=== PATIENT | male | born 1965 | race African-American/Black ===

== ENCOUNTER 2017-11-10 16:03 | Inpatient (IN) | payer OTHER ==
--- NOTE | 2017-11-10 16:12 | PDOC ---
Rapid Medical Evaluation Time Seen by Provider: 11/10/17 16:06 Medical Evaluation: 11/10/17 16:06 The patient presents with a chief complaint of: Tore R quad muscle at work on 11/04/17. Pt. states he is to have surgery tomorrow on the leg. by his orthopedic Ortho: Dr. Yoan Sung I have performed a brief in-person evaluation of this patient; Pertinent physical exam findings: r leg in knee immobilizer I have ordered the following: Pre-op labs CBC, CMP, Pt/INR, Type and Screen, EKG, CXR The patient will proceed to the ED for further evaluation.
[2017-11-10 16:37] LABS: BASO % 1.1 % (0-2.0); EOS % 2.2 % (0-4.5); HEMATOCRIT 40.6 % (35.4-49); HEMOGLOBIN 13.3 GM/dL (11.7-16.9); LYMPH % 42.6 % (8-40); MCH 27.9 pg (25.7-33.7); MCHC 32.6 g/dl (32.0-35.9); MEAN CELL VOLUME 85.5 fl (80-96); MEAN PLT VOLUME 8.2 fl (7.5-11.1); MONO % 14.6 % (3.8-10.2); NEUT % 39.5 % (42.8-82.8); PLATELET COUNT 303 K/MM3 (134-434); RBC 4.75 M/mm3 (4.00-5.60); RDW 14.7 % (11.9-15.9); WHITE BLOOD COUNT 7.3 K/mm3 (4.0-10.0)
[2017-11-10 16:49] LABS: INR 1.1 (0.82-1.09); PROTHROMBIN TIME (PATIENT) 12.4 SEC (9.98-11.88)
[2017-11-10 16:58] LABS: ALBUMIN 3.8 g/dl (3.4-5.0); ANION GAP 5 (8-16); BILIRUBIN,TOTAL 0.4 mg/dL (0.2-1.0); BLOOD UREA NITROGEN 18 mg/dL (7-18); CALCIUM 9.2 mg/dL (8.5-10.1); CHLORIDE 107 mmol/L (98-107); CO2 28 mmol/L (21-32); CREATININE 0.9 mg/dL (0.7-1.3); GLUCOSE,RANDOM 84 mg/dL (74-106); POTASSIUM 4.2 mmol/L (3.5-5.1); SGOT/AST 21 U/L (15-37); SGPT/ALT 47 U/L (12-78); SODIUM 140 mmol/L (136-145)
--- NOTE | 2017-11-10 16:58 | PDOC ---
History of Present Illness - General Chief Complaint: Pain Stated Complaint: ADMIT (PCP SENT) Needs RT Leg sx tomorrow Time Seen by Provider: 11/10/17 16:06 History Source: Patient Exam Limitations: No Limitations - History of Present Illness Initial Comments: 11/10/17 17:27 Pt. is a 51 y/o male with past medical history of bilateral patellar tendon rupture, biceps tendon rupture, HTN, boarderline diabetic not on meds, presents to the ED today stating that he is having surgery tomorrow for his R quadriceps tendon rupture and was told by his orthopedic surgeon to come to the ED for admission. Pt. states that he was dragging a metal beam at work, when he planted his leg, twisted and felt a pop on 11/04/16. Approximately 1 month prior to the injury, pt states he took ciprofloxacin. Denies recent illness, cough, shortness of breath, fevers, chills, chest pain, nausea, vomiting, diarrhea, frequency, urgency, hematuria. Past History - Travel Traveled outside of the country in the last 30 days: No Close contact w/someone who was outside of country & ill: No - Past Medical History Allergies/Adverse Reactions: Allergies Allergy/AdvReac Type Severity Reaction Status Date / Time Penicillins Allergy Verified 11/10/17 16:12 COPD: No Diabetes: Yes (no on meds) HTN: Yes Other medical history: obesity - Suicide/Smoking/Psychosocial Hx Smoking History: Never smoked Information on smoking cessation initiated: No Hx Alcohol Use: No Drug/Substance Use Hx: No Substance Use Type: None Review of Systems - Review of Systems Able to Perform ROS?: Yes Comments:: 11/10/17 19:37 CONSTITUTIONAL: Absent: fever, chills, diaphoresis, generalized weakness, malaise, loss of appetite HEENT: Absent: rhinorrhea, nasal congestion, throat pain, throat swelling, difficulty swallowing, mouth swelling, ear pain, eye pain, visual Changes CARDIOVASCULAR: Absent: chest pain, loss of consciousness, palpitations, irregular heart rate, peripheral edema RESPIRATORY: Absent: cough, shortness of breath, dyspnea with exertion, orthopnea, wheezing, stridor, hemoptysis GASTROINTESTINAL: Absent: abdominal pain, abdominal distension, nausea, vomiting, diarrhea, constipation, melena, hematochezia GENITOURINARY: Absent: dysuria, frequency, urgency, hesitancy, hematuria, flank pain, genital pain MUSCULOSKELETAL: Present: R leg pain. Pt. wearing knee immobilizer. Absent: arthralgia, joint swelling SKIN: Absent: rash, itching, pallor HEMATOLOGIC/IMMUNOLOGIC: Absent: easy bleeding, easy bruising, lymphadenopathy, frequent infections ENDOCRINE: Absent: unexplained weight gain, unexplained weight loss, heat intolerance, cold intolerance NEUROLOGIC: Absent: headache, focal weakness or paresthesias, dizziness, unsteady gait, seizure, mental status changes, bladder or bowel incontinence PSYCHIATRIC: Absent: anxiety, depression, suicidal or homicidal ideation, hallucinations Is the patient limited Samoan proficient: No *Physical Exam - Vital Signs Last Vital Signs Temp Pulse Resp BP Pulse Ox 98.6 F 93 H 18 155/96 97 11/10/17 16:08 11/10/17 16:08 11/10/17 16:08 11/10/17 16:08 11/10/17 16:08 - Physical Exam Comments: 11/10/17 20:38 GENERAL: Well developed, well nourished. AAOx3. No acute distress breathing easily sitting in chair. HEENT: Normocephalic, atraumatic. PERRLA, EOMI. No conjunctival pallor. Sclera are non- icteric. Moist mucous membranes. Oropharynx is clear. NECK: Supple. Full ROM. No JVD. Carotid pulses 2+ and symmetric, without bruits. No thyromegaly. No lymphadenopathy. CARDIOVASCULAR: Regular rate and rhythm. No murmurs, rubs, or gallops. Distal pulses are 2+ and symmetric. PULMONARY: No evidence of respiratory distress. Lungs clear to auscultation bilaterally. No wheezing, rales or rhonchi. ABDOMINAL: Soft. Non-tender. Non-distended. No rebound or guarding. No organomegaly. Normoactive bowel sounds. MUSCULOSKELETAL R leg was not removed from knee immobilizer. TTP of the R quadriceps muscle Normal range of motion at all other joints. No bony deformities. No CVA tenderness. EXTREMITIES: No cyanosis. No clubbing. No edema. No calf tenderness. SKIN: Warm and dry. Normal capillary refill. No rashes. No jaundice. NEUROLOGICAL: Alert, awake, appropriate. Cranial nerves 2-12 intact. No deficits to light touch and temperature in face, upper extremities and lower extremities. No motor deficits in the in face, upper extremities and lower extremities. Normoreflexic in the upper and lower extremities. Normal speech. Toes are down- going bilaterally. Gait is normal without ataxia. PSYCHIATRIC: Cooperative. Good eye contact. Appropriate mood and affect. ED Treatment Course - LABORATORY CBC & Chemistry Diagram: 11/10/17 16:18 11/10/17 16:18 - RADIOLOGY Radiology Studies Ordered: Category Date Time Status CHEST PA & LAT [RAD] Stat Radiology 11/10/17 16:11 Ordered Medical Decision Making - Medical Decision Making 11/10/17 16:59 Pt. is a 51 y/o male with past medical history of bilateral patellar tendon rupture, biceps tendon rupture, HTN, boarderline diabetic not on meds, presents to the ED today for admission prior to his R quadriceps repair tomorrow. Will order pre-op labs, EKG, CXR. Spoke with Monica Francisco NP and discussed the case. Accepts pt. for admission. Ortho surgeon: Dr. Yoan Sung 1. CBC, CMP, PT/INR, Type and screen 2. EKG 3. CXR 4. Admit to [facility]. *DC/Admit/Observation/Transfer Diagnosis at time of Disposition: Quadriceps muscle rupture Qualifiers: Encounter type: initial encounter Laterality: right Qualified Code(s): S76.111A - Strain of right quadriceps muscle, fascia and tendon, initial encounter - Discharge Dispostion Condition at time of disposition: Stable Admit: Yes - Referrals - Patient Instructions - Post Discharge Activity
[2017-11-10 16:59] LABS: ALK PHOS 109 U/L (45-117)
[2017-11-10 17:11] LABS: URINE APPEARANCE CLEAR; URINE BILIRUBIN NEGATIVE (NEGATIVE); URINE BLOOD NEGATIVE (NEGATIVE); URINE COLOR YELLOW; URINE GLUCOSE (UA) NEGATIVE (NEGATIVE); URINE KETONE NEGATIVE (NEGATIVE); URINE LEUK ESTERASE NEGATIVE (NEGATIVE); URINE NITRITE NEGATIVE (NEGATIVE); URINE PROTEIN NEGATIVE (NEGATIVE); URINE UROBILINOGEN 4.0 E.U/dl mg/dL (0.2-1.0)
--- NOTE | 2017-11-10 19:15 | PN ---
Teaching Attending Note Name of Resident: Lambert Llanos ATTENDING PHYSICIAN STATEMENT I saw and evaluated the patient. I reviewed the resident's note and discussed the case with the resident. I agree with the resident's findings and plan as documented. SUBJECTIVE: 51 M who tore his Right Quad Muscle at work on 11/04/17. States he past a medical hx. of HTN, ? MARY, but not on CPAP yet, and borderline DM. Pt. presents for surgical clearance. States a elevator cable fell and his right quad muscle tore. No chest pain, pressure, no shortness of breath. States he had been under genera; anesthesia twice and the second time, he had trouble with shortness of breath, post extubation. OBJECTIVE: Physical: VS: Vital Signs Period Temp Pulse Resp BP Sys/Patricio Pulse Ox Last 24 Hr 98.6 F 93 18 155/96 97 GEN: NAD, resting in bed, AA0X3 HEENT: NCAT, PERRL, Throat without erythema or exudates CARD: RRR S1, S2 RESP:CTAB ABD: BSx4, NTD to palpation EXT: - C/C/E CBCD WBC 7.3 K/mm3 (4.0-10.0) 11/10/17 16:18 RBC 4.75 M/mm3 (4.00-5.60) 11/10/17 16:18 Hgb 13.3 GM/dL (11.7-16.9) 11/10/17 16:18 Hct 40.6 % (35.4-49) 11/10/17 16:18 MCV 85.5 fl (80-96) 11/10/17 16:18 MCHC 32.6 g/dl (32.0-35.9) 11/10/17 16:18 RDW 14.7 % (11.9-15.9) 11/10/17 16:18 Plt Count 303 K/MM3 (134-434) 11/10/17 16:18 MPV 8.2 fl (7.5-11.1) 11/10/17 16:18 CMP Sodium 140 mmol/L (136-145) 11/10/17 16:18 Potassium 4.2 mmol/L (3.5-5.1) 11/10/17 16:18 Chloride 107 mmol/L (98-107) 11/10/17 16:18 Carbon Dioxide 28 mmol/L (21-32) 11/10/17 16:18 Anion Gap 5 (8-16) L 11/10/17 16:18 BUN 18 mg/dL (7-18) 11/10/17 16:18 Creatinine 0.9 mg/dL (0.7-1.3) 11/10/17 16:18 Creat Clearance w eGFR > 60 (>60) 11/10/17 16:18 Random Glucose 84 mg/dL (74-106) 11/10/17 16:18 Calcium 9.2 mg/dL (8.5-10.1) 11/10/17 16:18 Total Bilirubin 0.4 mg/dL (0.2-1.0) 11/10/17 16:18 AST 21 U/L (15-37) 11/10/17 16:18 ALT 47 U/L (12-78) 11/10/17 16:18 Alkaline Phosphatase 109 U/L (45-117) 11/10/17 16:18 Total Protein 8.0 g/dl (6.4-8.2) 11/10/17 16:18 Albumin 3.8 g/dl (3.4-5.0) 11/10/17 16:18 EKG: NSR 82 QtC 457 CXR: No acute process ASSESSMENT AND PLAN: 51 M who tore his Right Quad Muscle at work on 11/04/17. States he past a medical hx. of HTN, ? MARY, but not on CPAP yet, and borderline DM. Presents with pre-op eval for right quad muscle 1.) R. Quad Tear - EKG- Pending - Type & Screen - NPO - IVF 2.) MARY - Not on CPAP - Pulm. Eval 3.) HTN - Not on home meds - Pt. states usually controlled at home 4.) Dvt PPx - As per Ortho Place in Med-Sx
--- NOTE | 2017-11-10 19:39 | HP ---
CHIEF COMPLAINT: R quadriceps tendon rupture, surgical repair tomorrow PCP: Dr. Trye Tripp in [facility] HISTORY OF PRESENT ILLNESS: 51 yo man with pmh of BL patellar tendon rupture, triceps rupture, HTN and prediabetes who presents to ED for surgical clearance for surgical repair of R quadriceps tendon rupture tomorrow with Dr. Wilbert Hernandez. Pt states he fell at work while moving heavy equipment and noted a pain in his R knee/thigh. He was evaluated, found to have a R quadriceps tear and scheduled for surgery by Dr. Hernandez tomorrow. Pt w/ multiple tendon ruptures in the past, however no family hx of tendonopathy or connective tissue dz. Of note, patient states he had a "breathing reaction" to propane gas exposure at work two weeks ago, endorsing that he couldn't breathe, received "breathing treatment" at urgent care with resolution of symptoms and was sent home on zyrtec. Pt states he was recently taking ciprofloxacin for bronchitis before the R quadriceps rupture. He denies any MUNOZ/dizziness, fever/chills, SOB, cough, CP, N/V, abdominal pain, rashes or new neurologic symptoms. Pt recently diagnosed with MARY after receiving a sleep study at [facility], however has not used his CPAP machine due to his recent breathing issues. He states that he received spinal anesthesia x2 for his prior patellar tendon rupture. Pt received GA twice for bot triceps tendon repair surgeries and during second surgery states that he awoke during the procedure and couldn't breath. He endorses no hx of adverse reaction to anesthesia. Pt with no significant cardiac or pulmonary conditions other than previously noted. ER course was notable for: (1)BP 155/96 (2) (3) Recent Travel: None PAST MEDICAL HISTORY: Diabetes HTN Obesity BL patellar tendon rupture Biceps tendon rupture PAST SURGICAL HISTORY: BL patellar tendon repair BL triceps tendon repair Social History: Smoking: No Alcohol: No Drugs: No Works in construction Family History: Noncontributory Allergies Penicillins Allergy (Verified 11/10/17 16:12) HOME MEDICATIONS: REVIEW OF SYSTEMS CONSTITUTIONAL: Absent: fever, chills, diaphoresis, generalized weakness, malaise, loss of appetite, weight change HEENT: Absent: rhinorrhea, nasal congestion, throat pain, throat swelling, difficulty swallowing, mouth swelling, ear pain, eye pain, visual changes CARDIOVASCULAR: Absent: chest pain, syncope, palpitations, irregular heart rate, lightheadedness , peripheral edema RESPIRATORY: Absent: cough, shortness of breath, dyspnea with exertion, orthopnea, wheezing, stridor, hemoptysis GASTROINTESTINAL: Absent: abdominal pain, abdominal distension, nausea, vomiting, diarrhea, constipation, melena, hematochezia GENITOURINARY: Absent: dysuria, frequency, urgency, hesitancy, hematuria, flank pain, genital pain MUSCULOSKELETAL: R quad tendon rupture, arthralgia, Absent: myalgia, joint swelling, back pain, neck pain SKIN: Absent: rash, itching, pallor HEMATOLOGIC/IMMUNOLOGIC: Absent: easy bleeding, easy bruising, lymphadenopathy, frequent infections ENDOCRINE: Absent: unexplained weight gain, unexplained weight loss, heat intolerance, cold intolerance NEUROLOGIC: Absent: headache, focal weakness or paresthesias, dizziness, unsteady gait, seizure, mental status changes, bladder or bowel incontinence PHYSICAL EXAMINATION Vital Signs - 24 hr 11/10/17 16:08 Temperature 98.6 F Pulse Rate 93 H Respiratory 18 Rate Blood Pressure 155/96 O2 Sat by Pulse 97 Oximetry (%) GENERAL: Awake, alert, and fully oriented, in no acute distress. HEAD: Normal with no signs of trauma. EYES: Pupils equal, round and reactive to light, extraocular movements intact, sclera anicteric, conjunctiva clear. L lateral deviation of L eye on forward fixation. No lid lag. EARS, NOSE, THROAT: Ears normal, nares patent, oropharynx clear without exudates. Moist mucous membranes. NECK: Normal range of motion, supple without lymphadenopathy, JVD, or masses. Peritracheal adiposity noted. LUNGS: Breath sounds equal, clear to auscultation bilaterally. No wheezes, and no crackles. No accessory muscle use. HEART: Regular rate and rhythm, normal S1 and S2 without murmur, rub or gallop. ABDOMEN: Protuberant. Soft, nontender, not distended, normoactive bowel sounds, no guarding, no rebound, no masses. No hepatomegaly or splenomegaly. MUSCULOSKELETAL: Limited ROM in R knee; external fixator in place. Mild tenderness to palpation in R knee. Normal range of motion at all joints. No bony deformities or tenderness. No CVA tenderness. UPPER EXTREMITIES: 2+ pulses, warm, well-perfused. No cyanosis. No clubbing. No peripheral edema. LOWER EXTREMITIES: 2+ DP, PT pulses BL, warm, well-perfused. No calf tenderness. No peripheral edema. NEUROLOGICAL: Cranial nerves II-XII intact. Normal speech. Gait not evaluated. 5/5 strength in all extremities grossly. Normal sensation to light touch in all extremities. PSYCHIATRIC: Cooperative. Good eye contact. Appropriate mood and affect. SKIN: Warm, dry, normal turgor, no rashes or lesions noted, normal capillary refill. Laboratory Results - last 24 hr CBC, BMP 11/10/17 16:18 11/10/17 16:18 11/10/17 11/10/17 11/10/17 16:15 16:18 16:18 WBC 7.3 RBC 4.75 Hgb 13.3 Hct 40.6 MCV 85.5 MCH 27.9 MCHC 32.6 RDW 14.7 Plt Count 303 MPV 8.2 Neutrophils % 39.5 L Lymphocytes % 42.6 H Monocytes % 14.6 H Eosinophils % 2.2 Basophils % 1.1 PT with INR 12.40 H INR 1.10 Sodium Potassium Chloride Carbon Dioxide Anion Gap BUN Creatinine Creat Clearance w eGFR Random Glucose Calcium Total Bilirubin AST ALT Alkaline Phosphatase Total Protein Albumin Urine Color Yellow Urine Appearance Clear Urine pH 5.0 Ur Specific [place] 1.025 Urine Protein Negative Urine Glucose (UA) Negative Urine Ketones Negative Urine Blood Negative Urine Nitrite Negative Urine Bilirubin Negative Urine Urobilinogen 4.0 e.u/dl Ur Leukocyte Esterase Negative Blood Type Antibody Screen 11/10/17 11/10/17 16:18 16:18 WBC RBC Hgb Hct MCV MCH MCHC RDW Plt Count MPV Neutrophils % Lymphocytes % Monocytes % Eosinophils % Basophils % PT with INR INR Sodium 140 Potassium 4.2 Chloride 107 Carbon Dioxide 28 Anion Gap 5 L BUN 18 Creatinine 0.9 Creat Clearance w eGFR > 60 Random Glucose 84 Calcium 9.2 Total Bilirubin 0.4 AST 21 ALT 47 Alkaline Phosphatase 109 Total Protein 8.0 Albumin 3.8 Urine Color Urine Appearance Urine pH Ur Specific [place] Urine Protein Urine Glucose (UA) Urine Ketones Urine Blood Urine Nitrite Urine Bilirubin Urine Urobilinogen Ur Leukocyte Esterase Blood Type B POSITIVE Antibody Screen Negative No micro CXR: No acute pathology noted. Prominent pulmonary arteries. No consolidations, PNA or pneumos. EKG: NSR, QTC 457, No ST changes, NAD ASSESSMENT/PLAN: 51 yo man with pmh of BL patellar tendon rupture, triceps rupture, HTN and pre- diabetes who presents to ED for surgical clearance for surgical repair of R quadriceps tendon rupture tomorrow with Dr. Wilbert Hernandez. #R quadriceps tendon rupture - Pt with unlimited exercise tolerance, cardiac hx of HTN and pulmonary hx of MARY and no other chronic medical issues. Pt is low risk for this intermediate risk non-emergent surgery. - Scheduled for surgery tomorrow with Dr. Wilbert Hernandez - EKG pending - CXR with no acute pathology - Type and screen, coags, BMP, CBC - Pulm consult in AM due to prior hx of apnea during anesthesia #HTN - No home meds - Monitor for signs of HTN #MARY - Pulm consulted - CPAP at night - f/u with PCP, Dr Tripp - O2 tx PRN if needed, maintain sat >97% PPX Heparin SubQ FEN PO hydration Daily BMPs NPO after midnight Plan discussed with attending, Dr. Salina Llanos, PGY1 Visit type - Emergency Visit Emergency Visit: Yes ED Registration Date: 11/10/17 Care time: The patient presented to the Emergency Department on the above date and was hospitalized for further evaluation of their emergent condition. - New Patient This patient is new to me today: Yes Date on this admission: 11/11/17 - Critical Care Critical Care patient: No
--- NOTE | 2017-11-11 09:34 | EKG ---
Test Reason : Blood Pressure : / mmHG Vent. Rate : 082 BPM Atrial Rate : 082 BPM P-R Int : 140 ms QRS Dur : 100 ms QT Int : 392 ms P-R-T Axes : 051 -06 020 degrees QTc Int : 457 ms NORMAL SINUS RHYTHM NORMAL ECG NO PREVIOUS ECGS AVAILABLE Confirmed by PAULO ROTHMAN, DESTINEE ([id number]) on 11/11/2017 9:33:47 AM Referred By: Confirmed By:DESTINEE BATES MD
[2017-11-11] MEDS ORDERED: MIDAZOLAM HCL 2 MG/2 ML SINGLE DOSE VIAL ONE ×3 (16:34→18:35)
[2017-11-11] MEDS ORDERED: BUPIVACAINE HCL/PF 0.75% 10 ML VIAL ONE (16:36)
[2017-11-11] MEDS ORDERED: BUPIVACAINE HCL/PF 0.25% (2.5MG/ML) 10 ML VIAL ONE (16:36)
[2017-11-11] MEDS ORDERED: ONDANSETRON 4 MG/2 ML VIAL IVPUSH PRN ×2 (17:51→21:05)
[2017-11-11] MEDS ORDERED: PROMETHAZINE HCL 25 MG/1 ML VIAL IVPUSH PRN (17:51)
[2017-11-11] MEDS ORDERED: CLINDAMYCIN PHOSPHATE 900 MG/6 ML VIAL IVPB ONE (18:05)
[2017-11-11] MEDS ORDERED: VANCOMYCIN 1,000 MG VIAL (RESTRICTED TO ID ONLY) IVPB ONE (18:05)
[2017-11-11] MEDS ORDERED: VANCOMYCIN 1,000 MG VIAL (RESTRICTED TO ID ONLY) ONE (18:06)
[2017-11-11] MEDS ORDERED: CLINDAMYCIN PHOSPHATE 600 MG/4 ML VIAL ONE (18:11)
--- NOTE | 2017-11-11 21:01 | PN ---
Progress Note (short form) - Note Progress Note: 51M p/w sub-acute, traumatic right quadriceps tendon rupture. Pt. is s/p previous right patellar ligament rupture, left quadriceps tendon rupture, and bilateral triceps tendon ruptures. He was on fluoroquinolone antibiotics within the last 3 weeks. Given his history of multiple tendon tears, I am concerned about an underlying connective tissue disorder and recommend that he see a mayonnaise mixer for thorough workup upon outpatient follow-up. -Pt. seen & examined in pre-op holding area. -H&P reviewed. -Risks, benefits, and alternatives of non-surgical VS surgical intervention discussed with and understood by patient and his . -Pt. wishes to pursue a surgical solution to his right quadriceps tendon tear. -Consent obtained. -Right lower extremity marked. -All questions were answered. -NPO, IVF, kg-op abx. -Plan for open surgical repair of right quadriceps tendon.
--- NOTE | 2017-11-11 21:04 | OP ---
Operative Note - Note: Operative Date: 11/11/17 Pre-Operative Diagnosis: Traumatic right quadriceps tendon tear. Operation: 1. Open right quadriceps repair. 2. Application right long leg cylinder cast Findings: Macerated quadriceps mechanism. Surgeon: Yoan Rabago [employer] Specialist: Wilbert Rabago Anesthesiologist/TRANSITION PROGRAM MANAGER: Dusty Miguel Anesthesia: Spinal Estimated Blood Loss (mls): 25 Operative Report Dictated: Yes
[2017-11-11] MEDS ORDERED: MAGNESIUM HYDROX 2400MG/30ML ORAL SUSPENSION 30 ML CUP PO PRN (21:05)
[2017-11-11] MEDS ORDERED: MAG HYDROX/AL HYDROX/SIMETH 30 ML UNIT-DOSE CUP PO PRN (21:05)
--- NOTE | 2017-11-11 21:14 | PN ---
Progress Note (short form) - Note Progress Note: 51M s/p open right quadriceps tendon repair & application right lower extremity long leg cylinder cast POD #0. -Pain control: No NSAID's x 8 weeks. -DVT PPx: chemical (ASA 325 BID x 6 weeks) & mechanical (DOLORES's, SCD's LLE). -Rebecca-op antibiotics: Vancomycin 1g IV @ 7am 11/12/2016; Clindamycin 900mg IV q8h post-op x 2 doses. -Incentive spirometry. -PT/OT/Rehab, out of bed. -NWB RLE x 4 weeks. -Crutch training. -q4h NV checks post-op x 24 hrs. -Diet as tolerated. -f/u post-op trial of void. -Care per primary medical team. -Will follow. -Discharge planning: Plan for outpatient follow-up [facility] ([facility]) 11/26/2017 (pt. to call for appointment: [phone]).
[2017-11-11] MEDS ORDERED: ELECTROLYTE-148 SOLN 1,000 ML IV SCH (21:15)
[2017-11-11] MEDS ORDERED: ASPIRIN 325 MG ENTERIC COATED TABLET (FP) ONE (21:43)
--- NOTE | 2017-11-11 21:54 | PN ---
Teaching Attending Note Name of Resident: Lambert Llanos ATTENDING PHYSICIAN STATEMENT I saw and evaluated the patient. I reviewed the resident's note and discussed the case with the resident. I agree with the resident's findings and plan as documented. SUBJECTIVE: 51 M with MARY who is POD #0 for right quad repair and application of RLE leg cylinder, Pt. States pain is well controlled and does not want pain meds at this point. Denies any chest pain, pressure or shortness of breath. No fevers, chills or N/V/D. OBJECTIVE: Physical: VS: Vital Signs Period Temp Pulse Resp BP Sys/Patricio Pulse Ox Last 24 Hr 97.3 F-98.7 F 76-91 14-20 116-140/69-88 96-100 GEN: NAD, Resting in bed, AA0X3 HEENT: NCAT, PERRL, Throat without erythema or exudates CARD: RRR S1, S2 RESP: CTAB ABD:BSx4, NTD to palpation EXT: Pulses intact bilateral LE CBCD WBC 7.3 K/mm3 (4.0-10.0) 11/10/17 16:18 RBC 4.75 M/mm3 (4.00-5.60) 11/10/17 16:18 Hgb 13.3 GM/dL (11.7-16.9) 11/10/17 16:18 Hct 40.6 % (35.4-49) 11/10/17 16:18 MCV 85.5 fl (80-96) 11/10/17 16:18 MCHC 32.6 g/dl (32.0-35.9) 11/10/17 16:18 RDW 14.7 % (11.9-15.9) 11/10/17 16:18 Plt Count 303 K/MM3 (134-434) 11/10/17 16:18 MPV 8.2 fl (7.5-11.1) 11/10/17 16:18 CMP Sodium 140 mmol/L (136-145) 11/10/17 16:18 Potassium 4.2 mmol/L (3.5-5.1) 11/10/17 16:18 Chloride 107 mmol/L (98-107) 11/10/17 16:18 Carbon Dioxide 28 mmol/L (21-32) 11/10/17 16:18 Anion Gap 5 (8-16) L 11/10/17 16:18 BUN 18 mg/dL (7-18) 11/10/17 16:18 Creatinine 0.9 mg/dL (0.7-1.3) 11/10/17 16:18 Creat Clearance w eGFR > 60 (>60) 11/10/17 16:18 Random Glucose 84 mg/dL (74-106) 11/10/17 16:18 Calcium 9.2 mg/dL (8.5-10.1) 11/10/17 16:18 Total Bilirubin 0.4 mg/dL (0.2-1.0) 11/10/17 16:18 AST 21 U/L (15-37) 11/10/17 16:18 ALT 47 U/L (12-78) 11/10/17 16:18 Alkaline Phosphatase 109 U/L (45-117) 11/10/17 16:18 Total Protein 8.0 g/dl (6.4-8.2) 11/10/17 16:18 Albumin 3.8 g/dl (3.4-5.0) 11/10/17 16:18 ASSESSMENT AND PLAN: 51 M with MARY who is POD #0 for right quad repair and application of RLE leg cylinder 1.) R. Quad Repair with RLE Cylinder - Repeat CBC and CMP with [facility] in am - Resume diet - Incentive Spirometry - Clindamycin 900 mg IV q8h - PT/OT - Post op trial of void 2.) MARY - CPAP, if pt. willing at night 3.) Dvt Ppx - As per Ortho sx Rest as per resident note
[2017-11-11] MEDS: ASPIRIN 325 MG TABLET PO SCH (22:18)
[2017-11-11] MEDS: SENNOSIDES/DOCUSATE COMBO (SENNA PLUS) TABLET (UD) PO SCH (22:29)
--- NOTE | 2017-11-11 22:43 | PN ---
Physical Exam: SUBJECTIVE: Patient seen and examined by me this AM - Pt POD0 from R Quadricep tendon/muscle repair; Surgery with no complications - Pt with no complaints; No BM/flatus yet. Pt approved for PO feeds by surgical team; Denies SOB, cough, CP, palpitations, N/V, abdominal pain, numbness/ tingling in hands/feets, fevers/chills, MUNOZ/dizziness - Pt concerned about skilled nursing pain management, as oxycodone/percocet tend to give him constipation. Informed to bring this up with surgical team before discharge OBJECTIVE: Vital Signs Intake & Output 11/08/17 11/09/17 11/10/17 11/11/17 23:59 23:59 23:59 23:59 Intake Total 2900 Output Total 25 Balance 2875 Weight 127.006 kg Period Temp Pulse Resp BP Sys/Patricio Pulse Ox Last 24 Hr 97.8 F-98.7 F 77-88 14-20 122-140/69-82 96-100 GENERAL: Awake, alert, and fully oriented, in no acute distress. laying in bed HEAD: Normal with no signs of trauma. EYES: Pupils equal, round and reactive to light, extraocular movements intact, sclera anicteric, conjunctiva clear. L lateral deviation of L eye on forward fixation. No lid lag. EARS, NOSE, THROAT: Ears normal, nares patent, oropharynx clear without exudates. Moist mucous membranes. NECK: Normal range of motion, supple without lymphadenopathy, JVD, or masses. Peritracheal adiposity noted. LUNGS: Breath sounds equal, clear to auscultation bilaterally. No wheezes, and no crackles. No accessory muscle use. HEART: Regular rate and rhythm, normal S1 and S2 without murmur, rub or gallop. ABDOMEN: Protuberant. Soft, nontender, not distended, normoactive bowel sounds, no guarding, no rebound, no masses. No hepatomegaly or splenomegaly. MUSCULOSKELETAL: Normal range of motion at all other joints. No bony deformities or tenderness. No CVA tenderness. UPPER EXTREMITIES: 2+ pulses, warm, well-perfused. No cyanosis. No clubbing. No peripheral edema. LOWER EXTREMITIES: R leg immobilized in cast. 2+ DP, PT pulses BL. Preserved sensation to light touch BL in feet. No calf tenderness. No peripheral edema. NEUROLOGICAL: Cranial nerves II-XII intact. Normal speech. Gait not evaluated. 5/5 strength in all extremities grossly, except R leg due to cast. Normal sensation to light touch in all extremities. PSYCHIATRIC: Cooperative. Good eye contact. Appropriate mood and affect. SKIN: Warm, dry, normal turgor, no rashes or lesions noted, normal capillary refill. Active Medications Generic Name Dose Route Start Last Admin Trade Name Freq PRN Reason Stop Dose Admin Al Hydroxide/Mg Hydroxide 30 ml 11/11/17 21:05 Mylanta Oral Suspension - PO Q4H PRN DYSPEPSIA Aspirin 325 mg 11/11/17 22:00 11/11/17 22:18 Asa - PO Not Given BID MELANY Fentanyl 50 mcg 11/11/17 17:51 Sublimaze Injection - IVPUSH [id number] PRN PAIN-PACU ORDER X 4 DOSES ONLY Parenteral Electrolytes 1,000 mls @ 125 mls/hr 11/11/17 18:00 Plasma-Lyte 148 - IV ASDIR MELANY Parenteral Electrolytes 1,000 mls @ 125 mls/hr 11/11/17 21:15 Plasma-Lyte 148 - IV 11/12/17 06:00 ASDIR MELANY Vancomycin HCl 1 mg/ Dextrose 250 mls @ 166.667 mls/hr 11/12/17 07:00 IVPB 11/12/17 08:29 ONCE ONE Protocol Clindamycin Phosphate 900 mg in 50 mls @ 100 mls/hr 11/12/17 02:00 Cleocin 900 Mg Premix Ivpb - IVPB 11/12/17 10:29 Q8H-IV MELANY Ondansetron HCl 4 mg 11/11/17 17:51 Zofran Injection IVPUSH Q6H PRN NAUSEA AND/OR VOMITING Ondansetron HCl 4 mg 11/11/17 21:05 Zofran Injection IVPUSH Q6H PRN NAUSEA Oxycodone/Acetaminophen 1 combo 11/11/17 22:30 Percocet 5/325 - PO 11/12/17 22:29 Q6H MELANY Pantoprazole Sodium 40 mg 11/12/17 10:00 Protonix - PO DAILY MELANY Promethazine HCl 12.5 mg 11/11/17 17:51 Phenergan Injection - IVPUSH Q6H PRN NAUSEA-FOR RESCUE AFTER 15 MIN Senna/Docusate Sodium 1 tablet 11/11/17 22:00 11/11/17 22:29 Pericolace - PO 1 tablet BID MELANY Administration No micro CXR 11/10: No acute pathology noted. Prominent pulmonary arteries. No consolidations, PNA or pneumos. EKG 11/10: NSR, QTC 457, No ST changes, NAD ASSESSMENT/PLAN: 51 yo man with pmh of BL patellar tendon rupture, triceps rupture, HTN and pre- diabetes who presents to ED for surgical clearance for surgical repair of R quadriceps tendon rupture, now POD0, doing well w/ no complaints, afebrile and has not passed flatus/BM yet. Post-op management per surgical team. #R quadriceps tendon rupture - Pt PODO from surgical repair for R quad tendon/muscle rupture. - Post-op management per surgical team: -Pain control: No NSAID's x 8 weeks. -DVT PPx: chemical (ASA 325 BID x 6 weeks) & mechanical (DOLORES's, SCD's LLE). -Rebecca-op antibiotics: Vancomycin 1g IV @ 7am 11/12/2016; Clindamycin 900mg IV q8h post-op x 2 doses. -Incentive spirometry. -PT/OT/Rehab, out of bed. -NWB RLE x 4 weeks. -Crutch training. -q4h NV checks post-op x 24 hrs. -Diet as tolerated. -f/u post-op trial of void. - Ordered for one time dose of percocet for pain control #HTN - No home meds - Monitor for signs of HTN #MARY - Pulm consulted - CPAP at night - f/u with PCP, Dr Tripp - O2 tx PRN if needed, maintain sat >97% PPX SCDs per surgical team FEN PO hydration Daily BMPs Regular diet Plan discussed with attending, Dr. Salina Llanos, PGY1 Visit type - Emergency Visit Emergency Visit: Yes ED Registration Date: 11/10/17 Care time: The patient presented to the Emergency Department on the above date and was hospitalized for further evaluation of their emergent condition. - New Patient This patient is new to me today: No - Critical Care Critical Care patient: No
[2017-11-11] MEDS: oxyCODONE HCL 5 MG TABLET PO SCH ×4 (22:46→23:06)
[2017-11-11] MEDS: ACETAMINOPHEN 325 MG TABLET (FP) PO SCH ×2 (22:47→22:53)
[2017-11-12] MEDS: oxyCODONE HCL 5 MG TABLET PO SCH ×4 (00:05→17:11)
[2017-11-12] MEDS: ACETAMINOPHEN 325 MG TABLET (FP) PO SCH ×4 (00:07→17:12)
[2017-11-12] MEDS: CLINDAMYCIN 900 MG PREMIX IVPB 900 MG/50 ML BAG IVPB SCH ×2 (01:54→09:44)
[2017-11-12 04:39] VITALS: BMI 38.1
[2017-11-12] MEDS: ELECTROLYTE-148 SOLN 1,000 ML IV SCH (05:48)
[2017-11-12] MEDS ORDERED: VANCOMYCIN 1,000 MG in DEXTROSE 5%-WATER - 250 ML IVPB ONE (07:00)
[2017-11-12 07:48] LABS: HEMATOCRIT 37.2 % (35.4-49); MCH 27.6 pg (25.7-33.7); MCHC 32.2 g/dl (32.0-35.9); MEAN CELL VOLUME 85.6 fl (80-96); MEAN PLT VOLUME 8.1 fl (7.5-11.1); PLATELET COUNT 266 K/MM3 (134-434); RBC 4.35 M/mm3 (4.00-5.60); WHITE BLOOD COUNT 9.1 K/mm3 (4.0-10.0)
[2017-11-12 08:22] LABS: CHLORIDE 104 mmol/L (98-107); POTASSIUM 4.1 mmol/L (3.5-5.1); SODIUM 136 mmol/L (136-145)
[2017-11-12 08:35] LABS: ALBUMIN 3.1 g/dl (3.4-5.0); ALK PHOS 88 U/L (45-117); ANION GAP 8 (8-16); BILIRUBIN,TOTAL 0.6 mg/dL (0.2-1.0); BLOOD UREA NITROGEN 13 mg/dL (7-18); CALCIUM 7.4 mg/dL (8.5-10.1); CO2 24 mmol/L (21-32); CREATININE 0.7 mg/dL (0.7-1.3); GLUCOSE,RANDOM 126 mg/dL (74-106); SGOT/AST 16 U/L (15-37); SGPT/ALT 36 U/L (12-78); TOT PROT 6.3 g/dl (6.4-8.2)
[2017-11-12] MEDS: ASPIRIN 325 MG TABLET PO SCH ×2 (09:44→21:35)
[2017-11-12] MEDS: SENNOSIDES/DOCUSATE COMBO (SENNA PLUS) TABLET (UD) PO SCH ×2 (09:45→21:35)
[2017-11-12] MEDS: PANTOPRAZOLE 40 MG TABLET (FP) PO SCH (09:45)
--- NOTE | 2017-11-12 11:02 | OP ---
DATE OF OPERATION: 11/11/2017 SURGEON: Yoan Rabago MD PRINCIPAL ELECTRICAL ENGINEER: Wilbert Rabago MD PREOPERATIVE DIAGNOSIS: Traumatic right quadriceps tendon tear. POSTOPERATIVE DIAGNOSIS: Traumatic right quadriceps tendon tear. SURGICAL PROCEDURES: 1. Open surgical repair right quadriceps tendon tear. 2. Application of right long leg cylinder cast. ANESTHESIA: Spinal and regional. POSITION: Supine. INCISION: Midline. ESTIMATED BLOOD LOSS: 25 mL. INTRAVENOUS FLUID: See Anesthesia record. SPECIMENS: None. DRAINS: None. COMPLICATIONS: None. URINE OUTPUT: None. BACTERIOLOGY: None. TRANSFUSIONS: None. CLOSURE: Number 1 and 2-0 Vicryl, and 3-0 Biosyn. INDICATIONS: The patient is a 51-year-old gentleman who was seen in our outpatient orthopedic clinic, where he was diagnosed with a subacute traumatic rupture of his right quadriceps tendon. Of interest, the patient has been treated within the last 3 to 4 weeks with a fluoroquinolone antibiotic, which we know potentiates tendinopathy. Given the fact that he has a previous history of a right patellar ligament tear, a left quadriceps tendon tear, and bilateral triceps tendon tears , I am suspicious of an underlying connective tissue disorder. This may have been exacerbated by the recent taking of fluoroquinolone antibiotic. The patient was indicated for an open repair of his right quadriceps mechanism in order to promote satisfactory healing, to avoid the complications of delayed surgical intervention, and to overall provide him with the best chance of a successful outcome given this potentially disastrous injury. DESCRIPTION OF PROCEDURE: The patient was identified in the holding area by his arm band. A long discussion was held with the patient in the presence of his regarding the risks, benefits and alternatives of the above-named procedure. The risks include but are not limited to: Pain, bleeding, infection, damage to surrounding structures (including nerves, blood vessels, skin, ligaments, tendons and bone), wound complications, delayed healing, failure of hardware/implant/ reduction, need for further surgery, blood clots, myocardial infarction, pulmonary embolism , anesthesia complications, compartment syndrome, limb loss, loss of function, and . Benefits as mentioned above. Alternatives include no surgery. All questions were answered. The patient and his understood and agreed to the proceed. Informed consent was obtained, witnessed and verified. The patient's correct operative limb - that is the right lower extremity - was marked. The patient was taken to the operating room after being seen by the anesthesia and nursing staff. The patient was brought into the operating room, placed on the OR table and secured with the safety strap. Consent and the operative site were again verified with the patient, Anesthesia and nursing staff. Anesthesia was administered without complication. This included a regional block of his right lower extremity as well as a spinal anesthetic. IV vancomycin as well as clindamycin were administered. The patient has a self-suspected penicillin allergy, as his father had a penicillin allergy. He does not himself know if he is truly allergic to the medication, but he does not want to take a chance. The patient was positioned with all bony prominences well padded, and the tourniquet was placed proximally on the right thigh and set to 250 mmHg. The operative site was then prepped and draped in the standard sterile fashion. A time-out was again done. The right lower extremity was exsanguinated using an Esmarch. The tourniquet was inflated, and the case began. A standard anterior, midline incision was taken from the middle of the thigh down towards the tibial tubercle. Sharp dissection was carried through the skin and subcutaneous tissues down to the level of the extensor mechanism. A transverse traumatic rupture of the rectus femoris tendon as well as the vastus medialis obliquus muscle were immediately identified. Multiple complex ruptures of the vastus lateralis as well as the more proximal bellies of the rectus femoris, vastus intermedius muscle, and vastus lateralis muscle were also identified. The injury sites and entirety of the wound were copiously irrigated and debrided of any residual clot. Next, a number 2 FiberWire suture was sutured in Krackow stitch fashion into the intact proximal limb of the rectus femoris muscle and tendon. Next, two longitudinal drill holes were made extra-articularly through the patella. This was using a 2.0-mm drill bit. A Luis Alberto needle was utilized to retrieve the limbs of the FiberWire suture, which were then delivered through each of the drill holes. Numerous number 1 Vicryl sutures were laid so as to repair the identifiable defects throughout the quadriceps mechanism. Next, the knee was fully extended and the FiberWire sutures were tied over the inferior aspect of the patella. Next, all of the Vicryl sutures were tied in the best possible attempt we could make to reconstruct and reapproximate the quadriceps mechanism. Once again, the wound was copiously irrigated with normal saline solution. At this point, we felt the best possible reconstruction and repair of the quadriceps mechanism that we could achieve had been performed, and we proceeded with wound closure, with the knee again fully extended. The wounds were closed primarily using number 1 and 2-0 Vicryl sutures, as well as 3-0 Biosyn subcuticular stitch. Three proximal simple interrupted Monocryl stitches were delivered as well. A sterile compressive dressing was applied, and the tourniquet was released. After 5 minutes of allowing the limb to re-perfuse, a long-leg cylinder cast was applied to the right lower extremity so as to minimize the potential for knee flexion and compromise of our repair/reconstruction. The final tourniquet time was 116 minutes. The sponge and needle counts were correct at the end of the case. I, the attending surgeon, was present and scrubbed throughout the entire case. The patient was then transferred to a hospital bed and taken to the recovery room in stable condition, having tolerated the procedure well. MD AC [id number] MTDD
--- NOTE | 2017-11-12 18:44 | PN ---
Teaching Attending Note Name of Resident: Peace Orozco ATTENDING PHYSICIAN STATEMENT I saw and evaluated the patient. I reviewed the resident's note and discussed the case with the resident. I agree with the resident's findings and plan as documented. SUBJECTIVE: No fever or chills , pain in R thigh . no SOb or CP OBJECTIVE: NAD CV : RRR Lungs : CTAB Ext: R leg in cast. DP 2+ . 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 has intact sensation in R foot A/P : 51 y/o man with h/o multiple tendon ruptures who presented with R quad rupture 1- R quad rupture, s/p repair , POD 1 - No WB - pain control - maintain cast - received post op Abx - can't reach Dr. Rabago for further REcs and wound care - DVT px per surgical team - Rheum f/u as out pt 2- New diagnosis of Dm : A1c 7.1 - will start metformin as outpt dc planning when OK with surgery . refused rehab, did not do well with crutches
[2017-11-12] MEDS ORDERED: ACETAMINOPHEN 325 MG TABLET (FP) PO PRN (21:11)
[2017-11-12] MEDS ORDERED: oxyCODONE HCL 5 MG TABLET PO PRN (21:11)
[2017-11-12] MEDS ORDERED: CYCLOBENZAPRINE HCL 10 MG TABLET (FP) PO ONE (21:30)
[2017-11-12] MEDS: CYCLOBENZAPRINE HCL 10 MG TABLET (FP) PO SCH (21:34)
--- NOTE | 2017-11-12 21:58 | PN ---
Physical Exam: SUBJECTIVE: Patient seen and examined. No fever or chills. Pain well controlled. OBJECTIVE: Vital Signs Period Temp Pulse Resp BP Sys/Patricio Pulse Ox Last 24 Hr 97.3 F-100 F 76-108 14-20 101-140/69-88 98-100 GENERAL: nad, aaox3 EYES: sclera anicteric, conjunctiva clear ENT: oropharynx clear without exudates. mmm NECK: supple, no cervical LAD, no JVD LUNGS: CTAB HEART: rrr, normal S1/S2, no m/r/g ABDOMEN: Protuberant. Soft, ntnd, normoactive BS LOWER EXTREMITIES: R leg immobilized in cast. 2+ DP and PT B/L, sensation intact in feet, 5/5 dorsiflexion/plantarflexion Laboratory Results - last 24 hr 11/12/17 11/12/17 11/12/17 06:30 06:30 06:30 WBC 9.1 RBC 4.35 Hgb 12.0 Hct 37.2 MCV 85.6 MCH 27.6 MCHC 32.2 RDW 15.0 Plt Count 266 MPV 8.1 Sodium 136 Potassium 4.1 Chloride 104 Carbon Dioxide 24 Anion Gap 8 BUN 13 D Creatinine 0.7 D Creat Clearance w eGFR > 60 Random Glucose 126 H D Hemoglobin A1c % 7.1 H Calcium 7.4 L Total Bilirubin 0.6 D AST 16 D ALT 36 D Alkaline Phosphatase 88 Total Protein 6.3 L D Albumin 3.1 L Active Medications Generic Name Dose Route Start Last Admin Trade Name Freq PRN Reason Stop Dose Admin Acetaminophen 325 mg 11/12/17 21:11 Tylenol - PO Q6H PRN PAIN LEVEL 6-10 Al Hydroxide/Mg Hydroxide 30 ml 11/11/17 21:05 Mylanta Oral Suspension - PO Q4H PRN DYSPEPSIA Aspirin 325 mg 11/11/17 22:00 11/12/17 21:35 Asa - PO 325 mg BID MELANY Administration Cyclobenzaprine HCl 10 mg 11/12/17 22:00 11/12/17 21:34 Flexeril - PO 11/13/17 10:01 10 mg BID MELANY Administration Fentanyl 50 mcg 11/11/17 17:51 Sublimaze Injection - IVPUSH [id number] PRN PAIN-PACU ORDER X 4 DOSES ONLY Parenteral Electrolytes 1,000 mls @ 125 mls/hr 11/11/17 18:00 11/12/17 05:48 Plasma-Lyte 148 - IV 125 mls/hr ASDIR MELANY Administration Ondansetron HCl 4 mg 11/11/17 17:51 Zofran Injection IVPUSH Q6H PRN NAUSEA AND/OR VOMITING Ondansetron HCl 4 mg 11/11/17 21:05 Zofran Injection IVPUSH Q6H PRN NAUSEA Oxycodone HCl 5 mg 11/12/17 21:11 Roxicodone - PO Q6H PRN PAIN LEVEL 6-10 Pantoprazole Sodium 40 mg 11/12/17 10:00 11/12/17 09:45 Protonix - PO 40 mg DAILY MELANY Administration Promethazine HCl 12.5 mg 11/11/17 17:51 Phenergan Injection - IVPUSH Q6H PRN NAUSEA-FOR RESCUE AFTER 15 MIN Senna/Docusate Sodium 1 tablet 11/11/17 22:00 11/12/17 21:35 Pericolace - PO 1 tablet BID MELANY Administration ASSESSMENT/PLAN: 51yo man with PMH of BL patellar tendon rupture, triceps rupture, HTN and pre- diabetes who presents to ED for surgical clearance for surgical repair of R quadriceps tendon rupture, now POD1. #POD1 s/p R quadriceps tendon/muscle rupture -Called Dr. Rabago's office to discuss post-operative management and wound care; he will assess patient in the evening - Post-op management per surgical team: -Pain control: No NSAID's x 8 weeks. -DVT PPx: chemical (ASA 325 BID x 6 weeks) & mechanical (DOLORES's, SCD's LLE). -completed kg-op antibiotics (vancomycin 1g IV @ 7am 11/12/2016; Clindamycin 900mg IV q8h post-op x 2 doses) -Incentive spirometry. -PT/OT/Rehab, out of bed. -NWB RLE x 4 weeks. -Crutch training. -q4h NV checks post-op x 24 hrs. -Diet as tolerated. #HTN - No home meds - Monitor for signs of HTN #MARY - Pulm consulted - CPAP at night - f/u with PCP, Dr Trpip - O2 tx PRN if needed, maintain sat >97% #PPX DVT - ASA and scd's per surgical team #FEN: PO hydration / Daily BMPs / Regular diet #DISPO: continue m/s FULL code d/w Dr. Kahs Orozco MD PGY1 - Internal Medicine Visit type - Emergency Visit Emergency Visit: No - New Patient This patient is new to me today: No - Critical Care Critical Care patient: No
--- NOTE | 2017-11-12 22:24 | PN ---
Progress Note (short form) - Note Progress Note: 10pm; 11/02/2017. 51M s/p open right quadriceps tendon repair & application right lower extremity long leg cylinder cast POD #1. Called as patient C/O cast discomfort No sign of compartment syndrome Cast has slid distally due to leg swelling decreasing hence distal impingement into ankle soft tissue Cutting into back of Tendo Achilles Well padded cast but requires appropriate trimming no cast insert cutter hospital used liudmila to cut cast at the back of the Achilles -Pain control: No NSAID's x 8 weeks. -DVT PPx: chemical (ASA 325 BID x 6 weeks) & mechanical (DOLORES's, SCD's LLE). -Incentive spirometry. -PT/OT/Rehab, out of bed. -NWB RLE x 4 weeks. -Crutch training. -Diet as tolerated. -Care per primary medical team. -Will follow. -Discharge planning: Plan for outpatient follow-up w/[facility] ([place] office) 11/26/2017 (pt. to call for appointment: [phone]).
--- NOTE | 2017-11-13 08:31 | PN ---
Physical Exam: SUBJECTIVE: Patient seen and examined. No events overnight. Blood pressure elevated this AM. OBJECTIVE: Vital Signs Period Temp Pulse Resp BP Sys/Patricio Pulse Ox Last 24 Hr 98.4 F-100 F 62-108 20-20 101-150/69-79 98-98 GENERAL: nad, aaox3 EYES: sclera anicteric, conjunctiva clear ENT: oropharynx clear without exudates. mmm NECK: supple, no cervical LAD, no JVD LUNGS: CTAB HEART: rrr, normal S1/S2, no m/r/g ABDOMEN: Protuberant. Soft, ntnd, normoactive BS LOWER EXTREMITIES: R leg immobilized in cast. 2+ DP and PT B/L, sensation intact in feet, 5/5 dorsiflexion/plantarflexion CBC, BMP 11/12/17 06:30 11/12/17 06:30 Hepatic Panel Total Bilirubin 0.6 mg/dL (0.2-1.0) D 11/12/17 06:30 AST 16 U/L (15-37) D 11/12/17 06:30 ALT 36 U/L (12-78) D 11/12/17 06:30 Alkaline Phosphatase 88 U/L (45-117) 11/12/17 06:30 Albumin 3.1 g/dl (3.4-5.0) L 11/12/17 06:30 Active Medications Acetaminophen (Tylenol -) 325 mg PO Q6H PRN PRN Reason: PAIN LEVEL 6-10 Last Admin: 11/13/17 17:21 Dose: 325 mg Al Hydroxide/Mg Hydroxide (Mylanta Oral Suspension -) 30 ml PO Q4H PRN PRN Reason: DYSPEPSIA Aspirin (Asa -) 325 mg PO BID [facility] Last Admin: 11/13/17 21:28 Dose: 325 mg Fentanyl (Sublimaze Injection -) 50 mcg IVPUSH [id number] PRN PRN Reason: PAIN-PACU ORDER X 4 DOSES ONLY Ondansetron HCl (Zofran Injection) 4 mg IVPUSH Q6H PRN PRN Reason: NAUSEA AND/OR VOMITING Ondansetron HCl (Zofran Injection) 4 mg IVPUSH Q6H PRN PRN Reason: NAUSEA Oxycodone HCl (Roxicodone -) 5 mg PO Q6H PRN PRN Reason: PAIN LEVEL 6-10 Pantoprazole Sodium (Protonix -) 40 mg PO DAILY [facility] Last Admin: 11/13/17 10:01 Dose: 40 mg Promethazine HCl (Phenergan Injection -) 12.5 mg IVPUSH Q6H PRN PRN Reason: NAUSEA-FOR RESCUE AFTER 15 MIN Senna/Docusate Sodium (Pericolace -) 1 tablet PO BID [facility] Last Admin: 11/13/17 21:28 Dose: 1 tablet ASSESSMENT/PLAN: 51yo man with PMH of BL patellar tendon rupture, triceps rupture, and HTN who p/ w ruptured tendon repair now POD2. #POD2 s/p R quadriceps tendon/muscle rupture -Cast adjustment by Dr. Rabago. - Post-op management per surgical team: -Pain control: No NSAID's x 8 weeks. -DVT PPx: chemical (ASA 325 BID x 6 weeks) & mechanical (DOLORES's, SCD's LLE). -Incentive spirometry. -PT/OT/Rehab, out of bed. -NWB RLE x 4 weeks. -Crutch training. -bariatric wheelchair x1 Rx #HTN - on no home meds, will d/c fluids and monitor #Diabetes, Alc 7.1% -Will d/c patient on Metformin #MARY - CPAP at night - O2 tx PRN if needed, maintain sat >97% #PPX DVT - ASA and scd's per surgical team #FEN: PO hydration / Daily BMPs / Regular diet #DISPO: continue m/s FULL code d/w Dr. Kash Orozco MD PGY1 - Internal Medicine Visit type - Emergency Visit Emergency Visit: No - New Patient This patient is new to me today: No - Critical Care Critical Care patient: No
[2017-11-13] MEDS: ASPIRIN 325 MG TABLET PO SCH ×2 (10:01→21:28)
[2017-11-13] MEDS: PANTOPRAZOLE 40 MG TABLET (FP) PO SCH (10:01)
[2017-11-13] MEDS: SENNOSIDES/DOCUSATE COMBO (SENNA PLUS) TABLET (UD) PO SCH ×2 (10:01→21:28)
[2017-11-13] MEDS: CYCLOBENZAPRINE HCL 10 MG TABLET (FP) PO SCH (10:02)
[2017-11-13] MEDS: ELECTROLYTE-148 SOLN 1,000 ML IV SCH (17:55)
--- NOTE | 2017-11-13 20:09 | PN ---
Teaching Attending Note Name of Resident: Peace Orozco ATTENDING PHYSICIAN STATEMENT I saw and evaluated the patient. I reviewed the resident's note and discussed the case with the resident. I agree with the resident's findings and plan as documented. SUBJECTIVE: seen at 12 pm . had some pain in R thigh. had no fever at that time , but later this afternoon had a 102 F OBJECTIVE: NAD CV: RRR Lungs: CTAB Ext: R leg in cast. DP 2+ . can wide area network engineer toes and ankle . has intact sensation in R foot A/P : 51 y/o man with h/o multiple tendon ruptures who presented with R quad rupture 1- R quad rupture, s/p repair , POD 2 - No WB - pain control - maintain cast , need adjustment as cast had moved after ambulation today - DVT px per surgical team - Rheum f/u as out pt 2- Fever: unclear source of infection - check UA and cxray - if spikes again, will send blood cx - if fever persists and no source is found , might have to look at surgical site - Will start Abx when source is identified 3- New diagnosis of Dm : A1c 7.1 - will start metformin at DC will cancel dc today , due to fever
--- NOTE | 2017-11-13 21:04 | PN ---
Progress Note (short form) - Note Progress Note: Cast trimmed distally Mobilise and D/C home tomorrow
[2017-11-14 03:30] LABS: URINE APPEARANCE CLEAR; URINE BILIRUBIN NEGATIVE (NEGATIVE); URINE BLOOD 1+ (NEGATIVE); URINE COLOR AMBER; URINE GLUCOSE (UA) 1+ (NEGATIVE); URINE KETONE NEGATIVE (NEGATIVE); URINE LEUK ESTERASE NEGATIVE (NEGATIVE); URINE NITRITE NEGATIVE (NEGATIVE); URINE UROBILINOGEN 4.0 E.U/dl mg/dL (0.2-1.0)
[2017-11-14 04:59] LABS: URINE PROTEIN 1+ (NEGATIVE)
[2017-11-14 05:05] LABS: URINE MUCUS FEW
[2017-11-14 07:11] VITALS: BP 135/85; PULSE 96; TEMP 98.2
[2017-11-14 08:26] LABS: HEMATOCRIT 39.2 % (35.4-49); HEMOGLOBIN 12.7 GM/dL (11.7-16.9); MCH 27.7 pg (25.7-33.7); MCHC 32.4 g/dl (32.0-35.9); MEAN CELL VOLUME 85.2 fl (80-96); MEAN PLT VOLUME 8.4 fl (7.5-11.1); PLATELET COUNT 252 K/MM3 (134-434); WHITE BLOOD COUNT 8.3 K/mm3 (4.0-10.0)
[2017-11-14] MEDS: SENNOSIDES/DOCUSATE COMBO (SENNA PLUS) TABLET (UD) PO SCH ×2 (08:48→09:02)
[2017-11-14] MEDS: ASPIRIN 325 MG TABLET PO SCH ×2 (08:48→09:02)
[2017-11-14] MEDS: PANTOPRAZOLE 40 MG TABLET (FP) PO SCH ×2 (08:48→09:02)
[2017-11-14 09:43] LABS: ANISOCYTOSIS 1+; MACROCYTOSIS 0; OVALOCYTE 1+; PLATELET ESTIMATE NORMAL
--- NOTE | 2017-11-14 16:31 | PN ---
Teaching Attending Note Name of Resident: Peace Orozco ATTENDING PHYSICIAN STATEMENT I saw and evaluated the patient. I reviewed the resident's note and discussed the case with the resident. I agree with the resident's findings and plan as documented. SUBJECTIVE: seen at 9 am No fever or chills over night . has no abd pain , no SOB or cough , OBJECTIVE: NAD CV: RRR Lungs: CTAB Ext: R leg in cast. DP 2+ . can move toes and ankle . has intact sensation in R foot A/P : 51 y/o man with h/o multiple tendon ruptures who presented with R quad rupture 1- R quad rupture, s/p repair , POD 3 - No WB - pain control - DVT px per surgical team asa BID x 6 weeks - Rheum f/u as out pt . pt made aware 2- Fever: likely due atelectasis after sx. resolved. last fever 6 pm yesterday UA and cxray neg 3- New diagnosis of DM : A1c 7.1 - start metformin prefer to be fever free for 24 hr before dc , but he prefers to go home and not wait tll evening. He understands the need to call with unusual pain, fever or chills. dc home
== END 2017-11-14 09:29 | disposition home or self-care (01) | DRG 317 ==
LOC: JER 16:03 → JERBED 16:58 → J8W 11-11 20:59
PROVIDERS: ADMIT Internal Medicine; ATTEND Internal Medicine
PROC: 0LQR0ZZ Repair Left Knee Tendon, Open Approach (ICD-10-PCS; principal; 2017-11-11 16:00)
DX: S76.111A Strain of right quadriceps muscle, fascia and tendon, initial encounter (principal); X58.XXXA Exposure to other specified factors, initial encounter; Y93.9 Activity, unspecified; Y92.89 Other specified places as the place of occurrence of the external cause; Y99.9 Unspecified external cause status; R50.9 Fever, unspecified; J98.11 Atelectasis; E11.9 Type 2 diabetes mellitus without complications; G47.33 Obstructive sleep apnea (adult) (pediatric); I10 Essential (primary) hypertension
CPT/HCPCS: 36415; 71045-TC; 71046-TC; 80048; 80053; 81003; 81015; 83036; 85025; 85027; 85610; 86850; 86900; 86901; 93005; 93010; 94010; 94660; 94760; 97116-GP; 97162-GP; 99283-25